=== PATIENT | male | born 1995 | race Caucasian/White ===

== ENCOUNTER 2017-09-02 05:35 | Inpatient (IN) | payer OTHER ==
[~2017-09-02] VITALS: Ht 182.9 cm; Wt 111.1 kg
[~2017-09-02 05:35] MED LIST: ABILIFY15 MG PO; BACTRIM,SEPT1 TABLET PO; BENTYL10 MG PO; CETIRIZINE HCL10 M2 PO; CLEOCIN150 MG PO; CLINDAMYCIN HC150 MG PO; COGENTIN0.5 MG PO; COLACE100 MG PO; CYCLOBENZAPRINE10 MG PO; FLUOXETINE HCL60 MG PO; FOCALIN XR20 MG PO; LAMICTAL200 MG PO; LORAZEPAM1 MG PO; LORAZEPAM2 MG PO; MIRALAX17 GM PO; MOBIC15 MG PO; MOTRIN600 MG PO; MOTRIN800 MG PO; NASACORT10.8 ML BOTH NARES; NORCO 5/3251 TABLET PO; PROZAC40 MG PO; SEROQUEL XR300 MG PO; SEROQUEL XR400 MG PO; SEROQUEL100 MG PO; SEROQUEL400 MG PO; TRAMADOL HCL50 MG PO; VICODIN 5-3001 EACH PO
[2017-09-02 06:09] LABS: HEMATOCRIT 40.5 % (38.0-50.0); HEMOGLOBIN 14.3 G/DL (12.5-16.6); MCH 28.4 PG (29.0-34.0); MCHC 35.3 G/DL (30.0-36.0); MCV 80.4 FL (86-99); PLATELET COUNT 300 K/uL (156-360); RBC DIS.WIDTH-CV 12.8 % (11.8-14.6); RBC DIS.WIDTH-SD 36.5 % (39-53); RED BLOOD COUNT 5.04 M/uL (4.00-5.50); WHITE BLOOD COUNT 10.5 K/uL (4.1-10.2)
[2017-09-02 06:26] LABS: CHLORIDE 104 mEq/L (99-109); POTASSIUM 3.7 mEq/L (3.7-5.4); SODIUM 140 mEq/L (136-147)
[2017-09-02 06:28] LABS: GLUCOSE 104 mg/dL (70-99)
[2017-09-02 06:31] LABS: SERUM ETHYL ALCOHOL < 10 mg/dL
[2017-09-02 06:32] LABS: GFR ESTIMATE (CALCULATED) > 59 mL/min/ (58.99-99999)
[2017-09-02 06:33] LABS: UREA NITROGEN (BUN) 17 mg/dL (9-23)
[2017-09-02 12:27] VITALS: BP 142/67
[2017-09-02 12:29] VITALS: BP 142/67
[2017-09-02 15:36] VITALS: BP 132/65
[2017-09-03 07:57] VITALS: BP 131/60
[2017-09-03 15:53] VITALS: BP 128/59
[2017-09-04 09:44] VITALS: BP 137/60
[2017-09-04 12:21] VITALS: BP 140/62
[2017-09-04 16:30] VITALS: BP 123/76
[2017-09-05 07:55] VITALS: BP 120/57
[2017-09-05 15:42] VITALS: BP 121/72
[2017-09-06 07:13] VITALS: BP 155/67
[2017-09-06 15:32] VITALS: BP 137/62
[2017-09-07 07:49] VITALS: BP 148/81
[2017-09-07] MEDS ORDERED: FLUOXETINE HCL10 MG PO (09:08)
== END 2017-09-07 10:47 | disposition home or self-care (01) | DRG 883 ==
LOC: EME 05:35 → 1WEST 09:51 → EDOF 09:51 → ENRESERV 11:54 → 1WEST 12:20
PROVIDERS: Emergency Medicine
DX: F63.81 Intermittent explosive disorder (principal); R45.851 Suicidal ideations; R45.850 Homicidal ideations; F17.200 Nicotine dependence, unspecified, uncomplicated; F63.9 Impulse disorder, unspecified; F41.1 Generalized anxiety disorder; R41.83 Borderline intellectual functioning; F31.9 Bipolar disorder, unspecified; Z81.8 Family history of other mental and behavioral disorders
CPT/HCPCS: 80048; 85027; 90837; 97150 GO; 97165 GO; 99281; 99285; G0480